=== PATIENT | male | born 1930 | race Two or more races ===

== ENCOUNTER 2018-08-03 09:43 | Emergency (ER) | payer OTHER ==
[~2018-08-03] VITALS: Ht 167.6 cm; Wt 72.6 kg
[~2018-08-03 09:43] MED LIST: AMLODIPINE BESY10 MG; ATORVASTATIN CA10 MG; LANOXIN0.25 MG; NEURONTIN300 MG PO; PERCOCET 5/3251 TAB PO; PRADAXA150 MG
== END 2018-08-03 18:41 | disposition home or self-care (01) ==
LOC: ER 09:43
DX: M25.562 Pain in left knee (principal)

== ENCOUNTER 2020-11-06 09:30 | Emergency (ER) | payer OTHER ==
[~2020-11-06] VITALS: Ht 167.6 cm; Wt 65.8 kg
== END 2020-11-06 13:28 | disposition home or self-care (01) ==
LOC: ER 09:30
DX: S40.021A Contusion of right upper arm, initial encounter (principal); W18.09XA Striking against other object with subsequent fall, initial encounter; Y93.89 Activity, other specified; Y92.59 Other trade areas as the place of occurrence of the external cause; Y99.8 Other external cause status

== ENCOUNTER 2021-08-22 11:06 | Outpatient (CLI) | payer OTHER | END 2021-08-22 11:09 | disposition home or self-care (01) | LOC: TOM 11:06 | PROVIDERS: ATTEND Internal Medicine | DX: G45.9 Transient cerebral ischemic attack, unspecified (principal); M75.121 Complete rotator cuff tear or rupture of right shoulder, not specified as traumatic; R10.9 Unspecified abdominal pain; K92.1 Melena ==

== ENCOUNTER 2021-09-04 07:33 | Outpatient (CLI) | payer OTHER | END 2021-09-04 07:35 | disposition home or self-care (01) | LOC: NUCLEAR 07:33 | PROVIDERS: ATTEND Internal Medicine | DX: G45.9 Transient cerebral ischemic attack, unspecified (principal) ==

== ENCOUNTER 2021-09-12 11:38 | Outpatient (CLI) | payer OTHER | END 2021-09-12 11:40 | disposition home or self-care (01) | LOC: MRI 11:38 | PROVIDERS: ATTEND Psychiatry & Neurology Clinical Neurophysiology | DX: G30.1 Alzheimer's disease with late onset (principal) | CPT/HCPCS: 70551 ==